=== PATIENT | female | born 1995 | race Two or more races ===

== ENCOUNTER 2021-09-11 08:14 | Emergency (ER) | payer BC ==
[~2021-09-11] VITALS: Ht 162.6 cm; Wt 70.3 kg
== END 2021-09-11 10:29 | disposition home or self-care (01) ==
LOC: ER 08:14
DX: S80.02XA Contusion of left knee, initial encounter (principal); W05.2XXA Fall from non-moving motorized mobility scooter, initial encounter; Y93.89 Activity, other specified; Y92.89 Other specified places as the place of occurrence of the external cause; Y99.9 Unspecified external cause status